=== PATIENT | female | born 1960 | race Caucasian/White ===

== ENCOUNTER 2023-09-16 16:00 | Outpatient (CLI) | payer BC, SELFPAY ==
--- NOTE | ~2023-09-16 | CT_ITS ---
EXAMINATION: CT abdomen pelvis wo con DATE: 09/16/2023 16:32 INDICATION: Ventral hernia. TECHNIQUE: Computed tomography (CT) of the abdomen and pelvis was performed without intravenous contr ast. Automated exposure control and iterative reconstruction technique were employed. The dose-length product was 764.24 mGy-cm. COMPARISON: None. FINDINGS: The visualized portions of the lung bases demonstrate mild atelectasis. No pleural effusion . The heart size is normal. No pericardial effusion. The liver, gallbladder, spleen, pancreas, adrena l glands, and kidneys are normal. There is no urolithiasis. There is diverticulosis of the colon with out evidence of diverticulitis. There is a supraumbilical ventral hernia containing nonobstructed tra nsverse colon. The appendix is normal. There is an umbilical hernia containing fat. There are no path ologically enlarged lymph nodes. There is no free intraperitoneal fluid. There is severe thoracic and lumbar spondylosis. IMPRESSION: 1. Supraumbilical ventral hernia containing nonobstructed transverse colon. 2. Umbilical hernia containing fat. Reviewed, dictated and finalized at location E. OLEUM LABORATORY TECHNICIAN
== END 2023-09-16 16:01 | disposition home or self-care (01) ==
PROVIDERS: Visit Provider Surgery
DX: K43.6 Other and unspecified ventral hernia with obstruction, without gangrene (principal); K42.9 Umbilical hernia without obstruction or gangrene
CPT/HCPCS: 74176

== ENCOUNTER 2023-10-26 13:22 | Outpatient (CLI) | payer BC, SELFPAY ==
--- NOTE | 2023-10-26 13:55 | ECG_ITS ---
Measurements Intervals [place] Rate: 61 P: 23 LA: 171 QRS: -28 QRSD: 166 T: 97 QT: 461 QTc: 466 Interpretive Statements SINUS RHYTHM LEFT BUNDLE BRANCH BLOCK BASELINE ARTIFACT- I, II, III, AVR, AVL, AVF ABNORMAL ECG NO PREVIOUS ECG AVAILABLE FOR COMPARISON Electronically Signed On 10-26-2023 14:08:29 CDT by Gentry Tavera D.O.
== END 2023-10-26 13:23 | disposition home or self-care (01) ==
LOC: ANHSURGERY 13:27
PROVIDERS: PCP Physician Assistant Medical; Visit Provider Surgery
DX: I10 Essential (primary) hypertension (principal); K43.6 Other and unspecified ventral hernia with obstruction, without gangrene; Z01.818 Encounter for other preprocedural examination; I44.7 Left bundle-branch block, unspecified
CPT/HCPCS: 36415; 86850; 86900; 86901; 93005

== ENCOUNTER 2023-10-30 01:42 | Day surgery (SDC) | payer BC, SELFPAY ==
[2023-10-23 08:36] VITALS: BMI 31.2
--- NOTE | 2023-10-23 08:45 | PC.NURSE ---
Report to the Outpatient Waiting Room, entrance under the green pavilion located off [facility], at time 10:30am on date 10-30-23. Planned Procedure Time: 12:30pm. Time changes happen often and if your time is changed the preop area will call you the afternoon before. - You and your visitor will be asked to self-screen and do not enter if you have any COVID symptoms. - A mask is optional within the hospital at this time. Patients may have clear liquids (water, carbonated beverages, clear teas, apple juice) until 3 hours prior to surgery (09:30AM) with a maximum of 20 ounces. - No food from midnight until time of surgery Take the following medications with a SIP of water the morning of surgery: TAKE ALL MEDS AT BEDTIME NIGHT BEFORE SURGERY DO NOT STOP ANY OF YOUR OTHER PRESCRIPTION MEDICATIONS PRIOR TO SURGERY ?EXCEPT THE FOLLOWING Medications to discontinue per physician VITAMINS Date to take last dose 10-26-23 Please no make-up, nail mauritanian, hairspray, perfume, deodorant, or body powder the day of surgery. No jewelry (including any body piercings) or valuables the day of surgery, leave them at home. Please take a shower or bath the night before, or the morning of, surgery with an antibacterial soap. Wear comfortable, loose fitting clothing. - Jewelry must be removed prior to entering the operating room. Rings and piercings that are not removed may be cut off. - The hospital will not accept responsibility for valuables. - Please leave all valuables, including medications, at home the day of surgery. If you are going home after surgery, a licensed salesperson driver must drive you home. - NO public transportation without another adult if you receive anesthesia. - We recommend that an adult stay with you for 24 hours following discharge. - We also recommend that you do not drive, make important decision, drink alcoholic beverages, or take any drugs that were not prescribed by your health care provider for at least 24 hours after your discharge time. Follow any additional instructions given to you from your surgeon. If you or anyone in your household have experienced Covid symptoms in the past week, please notify your surgeon or the nurse liaison at the phone number below for possible testing. Telephone instructions given to PATIENT and asked if any additional questions and then verbalized understanding. Patient advised to call surgeon office or pre surgery nurse liaison [phone] if any additional questions.
[2023-10-30] VITALS (10 sets, daily range): BP systolic 98–152; BP diastolic 41–70; PULSE 57–81; RESP 14–18; TEMP 36.2–36.7; O2SAT 92–100; BMI 30.9
[2023-10-30] MEDS: LACTATED RINGERS 1,000 ML 30 ML IV CONT ×2 (11:35→17:04)
[2023-10-30] MEDS: ACETAMINOPHEN 500 MG TABLET 1000 MG PO (11:41)
[2023-10-30] MEDS: KETOROLAC 15 MG/ML VIAL (*BKC) IV PUSH ×2 (11:41→16:45)
--- NOTE | 2023-10-30 12:25 | WPDANESEPPF ---
Anes - Initial Pre Proc Eval Procedure: Operation Date: 10/30/23 12:30 Proposed Procedures p Robotic Assisted Laparoscopic Incarcerated Ventral Hernia Repair with Mesh, Possible Open - Esteban Wolf MD Date/Time: 10/30/23 12:25 Surgeon: Esteban Wolf MD Pre Op Diagnosis: Incarcerated Ventral Hernia Patient Data Age: 63 Gender: F Height: 1.55 m Weight: 74.3 kg Last Vital Signs Temp 36.7 C 10/30/23 10:52 Pulse 57 L 10/30/23 10:52 Resp 18 10/30/23 10:52 BP 152/70 H 10/30/23 10:52 Pulse Ox 100 10/30/23 10:52 O2 Del Method Room Air 10/30/23 10:52 Allergies Allergy/AdvReac Type Severity Reaction Status Date / Time bee stings Allergy Severe Anaphylaxis Uncoded 10/30/23 11:31 Home Medications Medication Instructions Recorded Confirmed Type metoprolol succinate 25 mg 25 mg PO DAILY 09/03/22 10/23/23 History tablet,extended release 24 hr (Toprol XL) progesterone micronized 100 mg 100 mg PO DAILY 09/03/22 10/23/23 History capsule (Prometrium) epinephrine 0.3 mg/0.3 mL 0.3 mg (0.3 mL) IM ONCE PRN 05/19/23 10/23/23 Rx injection, auto-injector (EpiPen anaphylaxis #2 ea 2-Ha) losartan 50 mg tablet See Rx Instructions .Route 08/31/23 10/23/23 Rx .COMPLEX #90 tabs rosuvastatin 10 mg tablet 10 mg PO DAILY #90 tabs 09/25/23 10/23/23 Rx [id number]-V9-mcpfejz-silicon 1 tab-cap PO DAILY 10/23/23 10/30/23 History fluoxetine 10 mg capsule 10 mg PO DAILY 10/23/23 10/23/23 History Patient hx anesthesia problems: none Family hx anesthesia problems: none Results Review: All pre-operative results and documents have been reviewed as part of the pre-operative evaluation. [facility] Past Medical History Medical History Dyslipidemia HTN (hypertension) Hyperglycemia Rotator cuff arthropathy of right shoulder Surgical History Surgical History Delivery by section x2 S/P rotator cuff repair right - 2015 left - 2017 Family History Family History Father Carcinoma of colon Hypertension Sibling Alcoholism Grandparent Alcoholism Social History Social History Years smoked: 5 Smoking status: Former smoker Tobacco type: cigarettes Second hand tobacco smoke exposure: No Alcohol intake: current Drinks per week: 7 Substance use: never Substance use type: does not use Lack of Transportation: No Lack of Food: Never True Current Housing: I Have Housing Concerned About Future Housing: No Difficulty Paying Gas/Electric Bills: No Difficulty Paying for Meds: No Currently Unemployed: No Difficulty w/ Childcare or Family Care: No Living arrangements: with family Occupation/Education: retired Gender identity (if verbalized by the patient): Female Spiritual care concerns: No Anes - Eval Final PreProcedure Day of Procedure 10/30/23 12:25 Patient weight: obese Heart: regular rate and rhythm Lungs: clear to auscultation Airway: Mallampati scale class II Neurological: alert and oriented Last oral intake: >/= 8 hours ASA classification: III Emergent: no Anesthetic plan: proceed Anesthesia type and monitoring: general ETT and standard monitoring Results Review: All pre-operative results and documents have been reviewed as part of the pre-operative evaluation. Informed Consent: The patient's anesthetic plan and its attendant risks and benefits were discussed with the patient/family/POA. Questions were solicited and answers provided to the satisfaction of the patient/family/POA.
--- NOTE | 2023-10-30 12:30 | SUR.PREOP ---
1230- Notified patient procedure start time will be delayed. Patient denying needs at this time and declined using restroom.
--- NOTE | 2023-10-30 13:29 | PM.IMHP ---
H&P: HPI History of Present Illness Date/Time: 10/30/23 13:29 Chief Complaint: Incisional hernia Narrative: Ms. Almaraz returns to the office for recheck of her incarcerated epigastric ventral hernia.? She was sent after her last visit for a CT abd/pel which showed: IMPRESSION: 1. Supraumbilical ventral hernia containing nonobstructed transverse colon. 2. Umbilical hernia containing fat. She denies changes to the hernia since her last visit.? Still unable to reduce the hernia, but denies constipation, associated tenderness, nausea, vomiting, abdominal distension, or other symptoms of strangulation of obstruction. Review of Systems Review of Systems: The remainder of the review of systems to include constitutional, HEENT, cardiovascular, respiratory, GI, , integumentary, musculoskeletal, endocrine, immunologic, hematologic, psychiatric, and neurologic are all negative except for which is mentioned above in the HPI. REPLACED BY [facility] Past Medical History Medical History Dyslipidemia HTN (hypertension) Hyperglycemia Rotator cuff arthropathy of right shoulder Surgical History Surgical History Delivery by section x2 S/P rotator cuff repair right - 2015 left - 2017 Family History Family History Father Carcinoma of colon Hypertension Sibling Alcoholism Grandparent Alcoholism Social History Social History Years smoked: 5 Smoking status: Former smoker Tobacco type: cigarettes Second hand tobacco smoke exposure: No Alcohol intake: current Drinks per week: 7 Substance use: never Substance use type: does not use Lack of Transportation: No Lack of Food: Never True Current Housing: I Have Housing Concerned About Future Housing: No Difficulty Paying Gas/Electric Bills: No Difficulty Paying for Meds: No Currently Unemployed: No Difficulty w/ Childcare or Family Care: No Living arrangements: with family Occupation/Education: retired Gender identity (if verbalized by the patient): Female Spiritual care concerns: No Meds Home Medications and Allergies Home Medications Medication Instructions Recorded Confirmed Type metoprolol succinate 25 mg 25 mg PO DAILY 09/03/22 10/23/23 History tablet,extended release 24 hr (Toprol XL) progesterone micronized 100 mg 100 mg PO DAILY 09/03/22 10/23/23 History capsule (Prometrium) epinephrine 0.3 mg/0.3 mL 0.3 mg (0.3 mL) IM ONCE PRN 05/19/23 10/23/23 Rx injection, auto-injector (EpiPen anaphylaxis #2 ea 2-Ha) losartan 50 mg tablet See Rx Instructions .Route 08/31/23 10/23/23 Rx .COMPLEX #90 tabs rosuvastatin 10 mg tablet 10 mg PO DAILY #90 tabs 09/25/23 10/23/23 Rx lbzffwv-V8-rompyna-silicon 1 tab-cap PO DAILY 10/23/23 10/30/23 History fluoxetine 10 mg capsule 10 mg PO DAILY 10/23/23 10/23/23 History Allergies Allergy/AdvReac Type Severity Reaction Status Date / Time bee stings Allergy Severe Anaphylaxis Uncoded 10/30/23 11:31 Vital Signs Vital Signs - 24 hr 10/30/23 10:52 Temperature 36.7 C Pulse Rate 57 L Respiratory Rate 18 Blood Pressure 152/70 H Pulse Oximetry 100 Oxygen Delivery Room Air Exam Const: General: comfortable HENMT: Ears: TM's normal bilaterally Face/Nose/Sinus: Normal nares present Mouth: Yes moist mucous membranes Eyes: General: appearance normal, both eyes and all related structures Sclera: sclerae normal Pupils: Equal, round and reactive pupils present EOM: EOMs intact bilaterally Neck: Neck: supple Resp: Effort & Inspection: normal respiratory effort Auscultation: clear to auscultation bilaterally Cardio: Rate: regular rate Rhythm: regular rhythm GI: Other: Soft, nontender, nondistended.? Patient has a incarcerated epigastric ventral her
--- NOTE | 2023-10-30 13:34 | WPDHPUPDATE1 ---
History and Physical Update Update Date/Time: 10/30/23 13:34 History and Physical has been reviewed, including an updated exam of the patient. There are NO changes in the patient's condition. Risks, benefits, and alternatives have been discussed and questions answered. Patient agrees to proceed with procedure.
[2023-10-30] MEDS: ceFAZolin 2 GM/D5W 50 ML 2 GM/50 ML BAG IVPB (13:39)
[2023-10-30] MEDS: LIDO 1%/EPINEPHRINE 1:100,000 50 ML VIAL 20 ML INFILTRATE (14:24)
[2023-10-30] MEDS: BUPivacaine HCL 0.5% 10 ML AMP 20 ML INFILTRATE (14:26)
--- NOTE | 2023-10-30 16:58 | PM.OP ---
Procedure Note - Brief Procedure Note - Brief Date of procedure: 10/30/23 Incarcerated epigastric ventral hernia and incarcerated umbilical hernia Post-op diagnosis: Same Procedure performed: Robotic assisted laparoscopic incarcerated epigastric and umbilical hernia repairs with Bard Ventralight ST mesh. Surgeon: Esteban Wolf MD Anesthesia: GETA Implants: Bard Ventralight ST mesh 20 x 15 cm. Estimated blood loss (mL): 25 Drains: No Packing: No Pathology: None sent Complications: No immediate complications Condition: Stable Disposition: PACU
[2023-10-30] MEDS: fentaNYL CITRATE INJ (*CRX) 100 MCG/2 ML VIAL 25 MCG IV PUSH ×8 (17:27→18:20)
[2023-10-30] MEDS: oxyCODONE HCL (*CRX) 5 MG TAB IR PO (18:25)
--- NOTE | 2023-11-02 07:45 | W.PM.PROC2 ---
Procedure Note - Detailed Date of Procedure 10/30/23 Pre-op Diagnosis Incarcerated Ventral Hernia Post-op Diagnosis Other (Incarcerated epigastric ventral hernia and incarcerated umbilical hernia.) Procedure Performed Robotic assisted laparoscopic incarcerated epigastric and umbilical hernia repair with Bard Ventralight ST mesh (IPOM plus) Surgeon Esteban Wolf MD Anesthesia General Indications patient is a 63-year-old female presented with a non reducible bulge in the mid epigastric region. She was complaining of pain and enlargement of the bulge. She had no obstructive symptom. A CT scan abdomen pelvis was performed showing a mid epigastric primary ventral hernia with omentum and a very short segment of the transverse colon protruding up into the hernia sac. Also noted was a very small fat containing umbilical hernia. Both of these hernias were is non reducible she presents now for a robotic assisted laparoscopic incarcerated epigastric and umbilical hernia repair with mesh. Findings The patient had 2 separate primary ventral hernias. The 1st hernia was 3x3cm with incarcerated omentum and a very small short segment of transverse colon which was not obstructed or compromise any way. by a distance of 10cm with intact fascia from the epigastric hernia was a small 1x1cm primary umbilical hernia with incarcerated preperitoneal fat. Both of these hernias were repaired with the same large piece of mesh to cover both defects the closure of the defects. Description of Procedure After informed consent was obtained patient brought to the operating room she was placed supine position and general endotracheal anesthesia was administered. A Cates catheter was placed decompress the bladder. The abdomen was then prepped and draped usual sterile fashion. A time-out was then performed correctly identifying the patient as well as procedure to be performed. She was given perioperative IV antibiotics. Gain entrance into the abdomen placing a 5 mm Optiview port in the left upper quadrant with direct optical insertion. Once inside the abdomen insufflated to adequate pneumoperitoneum of 15mmHg of CO2. A easy see incarcerated omentum and transverse colon going up into the mid epigastric hernia defect. I then placed additional robotic trocar ports left lateral abdominal wall as well as a 10mm bedside bricklayer's assistant laparoscopic port in the left lateral abdominal wall as well. Once the ports were in I then the [employer] robot side docked on the patient's right side. The robotic arms attached robotic ports. Robotic instruments were then advanced into the abdomen as well as a robotic camera under direct visualization. I then scrubbed out the procedure sent down at the robotic console to perform the dissection robotically. I 1st started Reducing the omentum and the very short segment of transverse colon incarcerated within the hernia sac in the epigastric hernia. This is done very carefully with a [employer] robotic grasper. The omentum was completely viable as was the short segment of transverse colon. There was no evidence of obstruction of the bowel. Once this was done I then proceeded to take down the falciform ligament with robotic maurisio and was left in the abdomen to be removed at the end the procedure. I then resected the fat pad around the umbilicus and removed the incarcerated preperitoneal fat out of the umbilical hernia defect. This fatty tissue was left in the abdomen to be removed at the end procedure as well. I then measured the umbilical hernia defect and it was 1x1cm. from this umbilical defect by 10cm of intact fascia was the epigastric hernia defect which measured 3x3cm. I then decided to repair both hernia defects with coverage with a single large piece of Bard Ventralight ST mesh. This would be done in an intraperitoneal onlay mesh plus closure of the hernia defects (IPOM +). The piece of mesh I chose was [id number] in an oval con
== END 2023-10-30 19:28 | disposition home or self-care (01) ==
PROVIDERS: PCP Physician Assistant Medical; Visit Provider Surgery
PROC: (CPT 49594; principal; 2023-10-30 12:30)
DX: K43.6 Other and unspecified ventral hernia with obstruction, without gangrene (principal); K42.0 Umbilical hernia with obstruction, without gangrene; I10 Essential (primary) hypertension; E78.5 Hyperlipidemia, unspecified; Z87.891 Personal history of nicotine dependence; E66.9 Obesity, unspecified; Z68.31 Body mass index [BMI] 31.0-31.9, adult
CPT/HCPCS: 49594; S2900; A9270; C1781; J0690; J1100; J1885; J2250; J2405; J2704; J3010; J7120

== ENCOUNTER 2025-04-19 01:07 | Day surgery (SDC) | payer BC, SELFPAY ==
[2025-04-12 12:59] VITALS: BMI 32.1
--- NOTE | 2025-04-12 13:00 | PC.NURSE ---
Report to the Outpatient Waiting Room, entrance under the green pavilion located off [facility], at time _2pm_ on date _[id number]_. Planned Procedure Time: _3pm_.? Time changes happen often and if your time is changed the preop area will call you the afternoon before. - You and your visitor will be asked to self-screen and do not enter if you have any COVID symptoms. Please call surgeon if you need to reschedule. - A mask is optional within the hospital at this time. No smoking, or chewing tobacco (or any form of nicotine). Eat breakfast and a light lunch. Take only the following medications with a SIP of water on the morning of surgery: ___All medications OK to take.___ DO NOT STOP ANY OF YOUR OTHER PRESCRIPTION MEDICATIONS PRIOR TO SURGERY EXCEPT THE FOLLOWING Hold all vitamins and supplements for 3 days per anesthesiologist. Medications to discontinue per physician Date to take last dose Please no make-up, nail malay, hairspray, perfume, deodorant, or body powder the day of surgery.? No jewelry (including any body piercings) or valuables the day of surgery, leave them at home.? Please take a shower or bath the night before, or the morning of, surgery with an antibacterial soap.? Wear comfortable, loose fitting clothing.? - Jewelry must be removed prior to entering the operating room.? Rings and piercings that are not removed may be cut off. - The hospital will not accept responsibility for valuables.? - Please leave all valuables, including medications, at home the day of surgery. If you are going home after surgery, a licensed subway train driver must drive you home.? - NO public transportation without another adult if you receive anesthesia. - We recommend that an adult stay with you for 24 hours following discharge. - We also recommend that you do not drive, make important decision, drink alcoholic beverages, or take any drugs that were not prescribed by your health care provider for at least 24 hours after your discharge time. Follow any additional instructions given to you from your surgeon. Telephone instructions given to __Deb___and asked if any additional questions and then verbalized understanding. Patient advised to call surgeon office or pre surgery nurse liaison [phone] if any additional questions.
[2025-04-19] VITALS (7 sets, daily range): BP systolic 94–162; BP diastolic 46–73; PULSE 63–77; RESP 14–18; TEMP 37.1; O2SAT 94–98; BMI 32.7
--- OUTSIDE RECORDS SUMMARY | 2025-04-19 01:18 | XMS_ITS | Patient Health Record ---
Author Organization [facility] Address [address] [facility] [address] [place] [address] Support Name Relationship Address Phone Yvonne Almaraz Guarantor Unknown Reason For Referral No Information Plan Of Treatment No Information Insurance Providers Payer Name Payer Address Payer Phone Subscriber Number Group Number Insured Name Patient Relationship to Insured Coverage Start Date Coverage End Date [facility] PPO [address] [place], [place] [id number] Yvonne Almaraz Self - patient is the insured [facility] [address] [place], [place] [id number] Yvonne Almaraz Self - patient is the insured
--- OUTSIDE RECORDS SUMMARY | 2025-04-19 01:18 | XMS_ITS | Encounter Summary ---
Author Organization [facility] Address [address] [place] [address] Phone Care Team Providers Care Child Development Consultant Name Role Phone Jud Mendoza Primary Care Provider [phone] Encounter Details Date Type Department Care Team (Latest Contact Info) Description 05/12/2024 Orders Only [facility] Scanning, Provider Social History Tobacco Use Types Packs/Day Years Used Date Smoking Tobacco: Former Smokeless Tobacco: Never Comments Unknown Sex and Gender Information Value Date Recorded Sex Assigned at Not on file Legal Sex 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 Gender Identity Female 01/06/2023 9:17 PM CDT Sexual Orientation Straight 01/06/2023 9: 17 PM CDT documented as of this encounter Plan of Treatment Not on file documented as of this encounter Procedures Procedure Name Priority Date/Time Associated Diagnosis Comments SCAN - LABS 05/12/2024 documented in this encounter Results * SCAN - LABS (05/12/2024) us Provider Scanning Final Result documented in this encounter Visit Diagnoses Not on filedocumented in this encounter Care Teams Child Development Consultant Relationship Specialty Start Date End Date Jud Mendoza PA [address] [place] [phone] PCP - General Physician Bobj Developer 01/07/23 documented as of this encounter
--- NOTE | 2025-04-19 13:57 | WPDHPUPDATE1 ---
History and Physical Update Update Date/Time: 04/19/25 13:57 History and Physical has been reviewed, including an updated exam of the patient. There are NO changes in the patient's condition. Risks, benefits, and alternatives have been discussed and questions answered. Patient agrees to proceed with procedure.
--- NOTE | 2025-04-19 14:38 | S_PTH ---
PATIENT: Yvonne Almaraz LOC: [facility] U#:[id number] AGE/SX: 65/F ROOM: RE04/19/[address]: Francisco Montano MD : 1960 BED: DIS: 04/19/2025 SPEC #: [id number] RECD: 04/20/25 10:34 STATUS: AISHA REQ #: [id number] ESMER: 04/19/25 14:[address]: Francisco Montano DEPT: [facility] Surgical RECD BY: Patty Mclain ENTERED: 04/20/25 10:35 SP TYPE: Surgical OTHR DR: Jud Mendoza PA-C Tissues: A - Cyst Procedures: Hematoxylin and Eosin Stain Gross and Microscopic Level 4
[2025-04-19] MEDS: BUPIVACAINE/EPINEPHRINE 0.5% 50 ML VIAL 30 ML INFILTRATE (14:40)
--- NOTE | 2025-04-19 15:03 | W.PM.PROC2 ---
Procedure Note - Detailed Date of Procedure 04/19/25 Pre-op Diagnosis skin cyst right trapezius Post-op Diagnosis Same Procedure Performed Excision 2 cm residual skin cyst upper back with no margin, 9 cm layered closure Surgeon Francisco Montano MD Miniature Set Designer Malia Greco MATERIAL HANDLER Anesthesia Local (0.5% Marcaine with epinephrine) Indications Patient had an infected cyst on the right upper back near her shoulder in late January or 07 of February. This drained spontaneously. She saw me in the office and no procedure had to be done. We waited 6 weeks for a follow-up. At follow-up the wound was healed but cyst remnants remain. She is taken to the operating room now for excision of this skin cyst. Findings Scar tissue was all that was seen. No evidence of infection Description of Procedure Patient was checked in the preoperative holding area. The area of the cyst was marked on the skin. She was then taken to surgery and placed in left lateral decubitus position such that the right upper back and shoulder area were exposed. Prep and drape was carried out. An ellipse was drawn around the scar from the previous infected cyst. Local was then infiltrated into the skin and the subcutaneous tissue. Incision was made and full-thickness skin with some of the subcutaneous was completely excised. The scar associated with the residual cyst was 2 cm in greatest dimension. The length of the wound was 9 cm. Cautery was used for hemostasis. Some undermining of the 2 skin edges was carried out. A deep layer of interrupted 3-0 Vicryl suture was used to close the subcutaneous. The skin was loosely approximated with subcuticular 4-0 Vicryl suture. Finally the skin was closed with a running 4-0 Monocryl skin suture. The wound was dressed with Exofin surgical adhesive. The patient was awake throughout the procedure and comfortable. She was transferred back to same-day surgery in good condition. Estimated blood loss 5 cc. Estimated Blood Loss -5 Drains No Packing No Pathology Yes (Skin cyst right upper back/shoulder) Complications None Condition Stable Disposition Same day [facility] Billing Surgery - Charge Forward: Surgery Billing (Excision skin cyst right upper back 2 cm with no margin, 9 cm layered closure)
== END 2025-04-19 15:25 | disposition home or self-care (01) ==
PROVIDERS: PCP Physician Assistant Medical; Visit Provider Surgery
PROC: (CPT 11402; principal; 2025-04-19 15:00)
DX: L72.0 Epidermal cyst (principal)
CPT/HCPCS: 11402; 12034; 88305